=== PATIENT | male | born 1940 | race Caucasian/White ===

== ENCOUNTER 2021-11-21 13:02 | Day surgery (SDCO) | payer MEDICARE ==
[~2021-11-21] VITALS: Ht 175.3 cm; Wt 87.1 kg
[2021-11-21 15:17] LABS: BASOPHIL 0.3 % (0-2); EOSINOPHIL 0.9 % (0-7); HCT 46.1 % (42.0-52.0); HGB 15.6 g/dl (13.2-18.0); LYMPHOCYTE 21.4 % (15-48); MCH 32.6 pg (25.0-31.0); MCHC 33.8 g/dL (32.0-36.0); MCV 96.4 fL (78.0-100.0); MONOCYTE 5.8 % (0-12); MPV 9.5 fL (6.0-9.5); NEUTROPHIL 71.2 % (41-80); NRBC 0; PLT 174 K/uL (150-400); RBC 4.78 M/uL (4.70-6.00); RDW 12.7 % (11.5-14.0); WBC 11.4 K/uL (4.0-10.5)
[2021-11-21 15:27] LABS: INR 1.22 (0.9-1.2); PROTHROMBIN TIME 14.8 SECONDS (11.8-13.4); PTT 26.3 SECONDS (24.4-34.7)
[2021-11-21 15:41] LABS: LACTIC ACID 4.8 mmol/L (0.4-1.9)
[2021-11-21 15:45] LABS: ALBUMIN 3.9 g/dL (3.4-5.0); BILIRUBIN - TOTAL 0.9 mg/dL (0.2-1.0); BUN/CREAT RATIO (CALC) 16.3 RATIO; CREATININE 1.53 mg/dL (0.67-1.17); GLOBULIN (CALCULATION) 3.1 g/dL; POTASSIUM 4.1 mmol/L (3.5-5.1)
[2021-11-21 17:18] LABS: BILIRUBIN NEGATIVE (NEGATIVE); BLOOD NEGATIVE Ery/uL (NEGATIVE); CLARITY CLEAR (CLEAR); COLOR YELLOW (YELLOW); GLUCOSE (U) NORMAL (NORMAL); LEUKOCYTES NEGATIVE Leu/uL (NEGATIVE); NITRITE NEGATIVE (NEGATIVE); PROTEIN NEGATIVE (NEGATIVE); UROBILINOGEN 0.2 mg/dL (0.2-1.0)
[2021-11-21] MEDS ORDERED: LASIX20 MG PO (18:33)
[2021-11-21] MEDS ORDERED: DOXYCYCLINE HY100 MG PO (18:33)
[2021-11-21] MEDS ORDERED: NEURONTIN300 MG PO (18:34)
[2021-11-21] MEDS ORDERED: IRBESARTAN-HCT1 EACH PO (18:34)
[2021-11-21] MEDS ORDERED: ROSUVASTATIN CA10 MG PO (18:35)
[2021-11-21] MEDS ORDERED: AZITHROMYCIN 2250 MG PO (18:36)
[2021-11-21] MEDS ORDERED: LOPRESSOR25 MG PO (18:36)
[2021-11-21] MEDS ORDERED: METFORMIN HCL500 M1 PO (18:37)
[2021-11-21] MEDS ORDERED: ANORO ELLIPTA1 EACH INH (18:38)
[2021-11-21] MEDS ORDERED: VENTOLIN HFA18 GM INH (18:38)
[2021-11-21] MEDS ORDERED: ASPIRIN EC81 MG PO (18:39)
[2021-11-21] MEDS ORDERED: PRILOSEC20 MG PO (18:39)
[2021-11-22 05:55] LABS: BASOPHIL 0.5 % (0-2); EOSINOPHIL 2.6 % (0-7); HCT 41.9 % (42.0-52.0); HGB 14.5 g/dl (13.2-18.0); MCH 32.5 pg (25.0-31.0); MCHC 34.6 g/dL (32.0-36.0); MCV 93.9 fL (78.0-100.0); MONOCYTE 8.5 % (0-12); MPV 9.5 fL (6.0-9.5); NRBC 0; PLT 160 K/uL (150-400); RBC 4.46 M/uL (4.70-6.00); RDW 12.5 % (11.5-14.0); WBC 7.6 K/uL (4.0-10.5)
[2021-11-22 06:21] LABS: BUN/CREAT RATIO (CALC) 20.8 RATIO; CREATININE 1.3 mg/dL (0.67-1.17); MAGNESIUM 1.9 mg/dL (1.8-2.4); POTASSIUM 3.7 mmol/L (3.5-5.1)
--- NOTE | 2021-11-22 12:37 | NUR ---
11/22 Patient was transferred to [facility]
== END 2021-11-22 09:50 | disposition other institution (70) ==
LOC: FER 13:02 → FTCU 16:50
PROVIDERS: Emergency Medicine; ADMIT Family Medicine
DX: R55 Syncope and collapse (principal); N17.9 Acute kidney failure, unspecified; R74.02 Elevation of levels of lactic acid dehydrogenase [LDH]; I95.9 Hypotension, unspecified; I45.2 Bifascicular block; I25.10 Atherosclerotic heart disease of native coronary artery without angina pectoris; J44.9 Chronic obstructive pulmonary disease, unspecified; E11.65 Type 2 diabetes mellitus with hyperglycemia; Z20.822 Contact with and (suspected) exposure to COVID-19; Z99.81 Dependence on supplemental oxygen; Z79.82 Long term (current) use of aspirin; Z79.899 Other long term (current) drug therapy; Z95.1 Presence of aortocoronary bypass graft; Z95.5 Presence of coronary angioplasty implant and graft; Z88.5 Allergy status to narcotic agent
CPT/HCPCS: 36415; 36600; 70450; 71045; 80048; 80053; 81003; 82550; 82553; 82803; 83036; 83605; 83735; 84443; 84484; 85025; 85610; 85730; 93005; G0378; J7030; U0002